=== PATIENT | male | born 1955 | race Caucasian/White ===

== ENCOUNTER 2019-09-07 11:19 | Emergency (ER) | payer OTHER ==
[2019-09-07 11:37] VITALS: BP 142/82; PULSE 79; TEMP 98.1; BMI 27.3
[2019-09-07] MEDS ORDERED: KETOROLAC TROMETHAMINE 60 MG/2 ML VIAL IM ONE (11:53)
[2019-09-07] MEDS ORDERED: KETOROLAC TROMETHAMINE 60 MG/2 ML VIAL ONE (11:55)
[2019-09-07 13:04] LABS: BASO % 0.6 % (0-2.0); EOS % 2.8 % (0-4.5); HEMATOCRIT 46.9 % (35.4-49); LYMPH % 20.5 % (8-40); MCH 31.6 pg (25.7-33.7); MCHC 34.1 g/dl (32.0-35.9); MEAN CELL VOLUME 92.6 fl (80-96); MEAN PLT VOLUME 8.4 fl (7.5-11.1); MONO % 11.3 % (3.8-10.2); NEUT % 64.8 % (42.8-82.8); PLATELET COUNT 275 K/MM3 (134-434); RBC 5.06 M/mm3 (4.00-5.60); RDW 12.5 % (11.9-15.9); WHITE BLOOD COUNT 7.5 K/mm3 (4.0-10.0)
[2019-09-07 13:12] LABS: INR 0.97 (0.83-1.09); PROTHROMBIN TIME (PATIENT) 11.4 SEC (9.7-13.0)
[2019-09-07 13:21] LABS: ALBUMIN 4.3 g/dl (3.4-5.0); BILIRUBIN,TOTAL 0.7 mg/dL (0.2-1); BLOOD UREA NITROGEN 18.6 mg/dL (7-18); CALCIUM 9.7 mg/dL (8.5-10.1); POTASSIUM 4.5 mmol/L (3.5-5.1); TOT PROT 7.6 g/dl (6.4-8.2)
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
== END 2019-09-07 14:42 | disposition home or self-care (01) ==
LOC: JERFT 11:19
PROC: 3E0233Z Introduction of Anti-inflammatory into Muscle, Percutaneous Approach (ICD-10-PCS; principal; 2019-09-07)
DX: S29.011A Strain of muscle and tendon of front wall of thorax, initial encounter (principal); V47.5XXA Car driver injured in collision with fixed or stationary object in traffic accident, initial encounter; Y92.488 Other paved roadways as the place of occurrence of the external cause; Y93.89 Activity, other specified; Y99.8 Other external cause status; I10 Essential (primary) hypertension; E78.00 Pure hypercholesterolemia, unspecified; E11.9 Type 2 diabetes mellitus without complications; Z85.46 Personal history of malignant neoplasm of prostate
CPT/HCPCS: 36415; 71046-TC-FY; 71101-TC-LT-FY; 71260-TC; 74177-TC; 80053; 85025; 85610; 96372; 99282-25; Q9967

== ENCOUNTER 2020-02-21 06:11 | Day surgery (SDC) | payer OTHER ==
[2020-02-20 14:03] VITALS: BMI 26.5
[2020-02-21 06:54] VITALS: BP 157/91; PULSE 67; TEMP 97.9
[2020-02-21 07:26] LABS: OPIATES, URI NEGATIVE ng/ml (CUTOFF=300); PHENCYCLIDINE,URINE NEGATIVE ng/ml (CUTOFF=25); URINE AMPHETAMINES NEGATIVE ng/ml (CUTOFF=500); URINE BARBITURATES NEGATIVE ng/ml (CUTOFF=200)
[2020-02-21] MEDS ORDERED: PROPOFOL 20 ML ONE (07:32)
[2020-02-21] MEDS ORDERED: MIDAZOLAM HCL 2 MG/2 ML SINGLE DOSE VIAL ONE (07:32)
[2020-02-21 07:37] LABS: METHADONE, UR NEGATIVE ng/ml (CUTOFF=300); URINE BENZODIAZEPINES NEGATIVE ng/ml (CUTOFF=200)
[2020-02-21 07:48] LABS: COCAINE, UR POSITIVE ng/ml (CUTOFF=300)
== END 2020-02-21 08:21 | disposition home or self-care (01) ==
LOC: JASU-SURG 06:11
PROVIDERS: ATTEND Urology
DX: Z53.8 Procedure and treatment not carried out for other reasons (principal)
CPT/HCPCS: 80307; 82962

== ENCOUNTER 2020-04-24 05:03 | Day surgery (SDC) | payer OTHER ==
[2020-04-23 10:10] VITALS: BMI 25.0
--- NOTE | 2020-04-24 11:24 | HP ---
History & Physical Update - History History: No Change - Physical Physical: No Change - Assessment Assessment: No Change - Plan Plan: No Change
--- NOTE | 2020-04-24 11:26 | OP ---
Operative Note - Note: Operative Date: 04/24/20 Pre-Operative Diagnosis: prostate cancer Operation: prostate cryoablation and cystoscopy Findings: prostate cancer Post-Operative Diagnosis: Same as Pre-op Surgeon: Braulio Bob Anesthesiologist/TELEVISION EQUIPMENT OPERATOR: Simba Pate Anesthesia: General Estimated Blood Loss (mls): 0 Drains & Tubes with Location: 18 fr connor Operative Report Dictated: Yes
[2020-04-24 11:58] LABS: EPI CELLS 4 /uL (0-25.1); HYALINE CASTS 2 /uL (0-3.1); URINE APPEARANCE CLEAR; URINE BACTERIA 9 /uL (0-1359); URINE BILIRUBIN NEGATIVE (NEGATIVE); URINE COLOR YELLOW; URINE GLUCOSE (UA) 2+ (NEGATIVE); URINE KETONE NEGATIVE (NEGATIVE); URINE LEUK ESTERASE NEGATIVE (NEGATIVE); URINE NITRITE NEGATIVE (NEGATIVE); URINE PROTEIN 1+ (NEGATIVE); URINE RBC 6 /uL (0-23.9); URINE UROBILINOGEN 0.2 mg/dL (0.2-1.0); URINE WBC 7 /uL (0-25.8)
[2020-04-24] MEDS ORDERED: LIDOCAINE HCL/PF 2% SDV 5ML VIAL ONE (15:05)
[2020-04-24] MEDS ORDERED: PROPOFOL 20 ML ONE ×2 (15:06)
[2020-04-24] MEDS ORDERED: ceFAZolin SODIUM 1 GM VIAL IVPB ONE (15:25)
[2020-04-24] MEDS ORDERED: KETOROLAC TROMETHAMINE 30 MG/1 ML VIAL ONE (16:00)
[2020-04-24] MEDS ORDERED: ceFAZolin SODIUM 1 GM VIAL ONE ×2 (16:01)
[2020-04-24] MEDS ORDERED: DEXAMETHASONE SOD PHOSPHATE 4 MG/1 ML VIAL ONE (16:01)
[2020-04-24] MEDS ORDERED: PROMETHAZINE HCL 25 MG/1 ML VIAL IVPUSH PRN (16:27)
[2020-04-24] MEDS ORDERED: ONDANSETRON 4 MG/2 ML VIAL IVPUSH PRN (16:27)
[2020-04-24] MEDS ORDERED: oxyCODONE HCL 5 MG TABLET PO PRN (16:27)
--- NOTE | 2020-04-24 17:18 | OP ---
DATE OF OPERATION: 04/24/2020 PREOPERATIVE DIAGNOSIS: Prostate cancer. POSTOPERATIVE DIAGNOSIS: Prostate cancer. PROCEDURE: Cystoscopy and prostate cryoablation. SURGEON: Braulio Hogue MD. AIRCRAFT MAINTENANCE ENGINEER: None. ANESTHESIA: General via laryngeal mask. ANESTHESIOLOGIST: Simba Pate MD. SPECIMENS: None. CULTURES: None. DRAINS: An 18-Salvadorean Medina catheter. ESTIMATED BLOOD LOSS: Negligible. COMPLICATIONS: None. DESCRIPTION OF PROCEDURE: Patient was brought in the operating room, placed on the operating room table in the supine position. After administration of general anesthesia via laryngeal mask, intravenous antibiotics were administered. Sequential compression devices were placed. The patient was placed in dorsal lithotomy position and the genitals, perineum, were shaved first, then prepped and draped in usual sterile manner. The 18 [place]orean Medina catheter was placed per urethra. 10 mL was placed in the balloon. The bladder was filled with 400 mL of sterile normal saline and clamped. The transrectal ultrasound probe was inserted into the rectum. Transrectal ultrasound of the prostate was done. Planning was devised for the prostate cryoblation. Once the plan was devised, 6 cryoblation probes were placed and 2 temperature sensors, one for the one for external sphincter were placed. The Medina catheter was removed. Cystoscopy was performed which demonstrated normal anterior urethra. Prostatic urethra showed no probes had penetrated the prostatic urethra. The bladder was entered, thoroughly inspected. There were no firm bodies, tumors, stones, inflammation. Both ureteral orifices were in their usual location with clear efflux bilaterally. The scope was retroflexed and no probes penetrated the bladder as well. Now the superstiff guidewire was inserted, the cystoscope was removed. The urethral warmer was inserted over the guidewire, and urethral warming was started. The position of the cryoablation probes were reconfirmed under ultrasound, and then the cryoablation was done with 2 free cycles. At the end of the 2nd cycle, the temperature sensors and the ablation probes were removed. The urethral warmer was left in place an additional 5 minutes. With manual pressure on the perineum, hemostasis was assured. A sterile compressive dressing was applied with bacitracin, 4x4, and Tegaderm. Tolerated procedure well. Transferred to recovery room in stable condition. Medina catheter of 18 Salv[place]orean was replaced, draining clear at the end of procedure. BRAULIO HOGUE M.D. [id number]
[2020-04-24 18:40] VITALS: BP 149/84; PULSE 67; TEMP 97.1
== END 2020-04-24 18:40 | disposition home or self-care (01) ==
LOC: JASU-SURG 05:03
PROVIDERS: ATTEND Urology
PROC: 0V503ZZ Destruction of Prostate, Percutaneous Approach (ICD-10-PCS; principal; 2020-04-24 13:30)
DX: C61 Malignant neoplasm of prostate (principal); I10 Essential (primary) hypertension; E11.9 Type 2 diabetes mellitus without complications
CPT/HCPCS: 55873; C2618; 81003; 82962; 94760

== ENCOUNTER 2021-05-19 09:03 | Emergency (ER) | payer OTHER ==
[2021-05-19 09:12] VITALS: BP 146/77; PULSE 74; TEMP 98; BMI 27.4
== END 2021-05-19 12:35 | disposition home or self-care (01) ==
LOC: JER 09:03
DX: S20.212A Contusion of left front wall of thorax, initial encounter (principal); W22.09XA Striking against other stationary object, initial encounter
CPT/HCPCS: 71046-TC-FY; 71111-TC-FY; 93005; 93010; 99285-25

== ENCOUNTER 2021-06-23 11:26 | Emergency (ER) | payer OTHER ==
[2021-06-23 12:03] VITALS: TEMP 99.3; BMI 26.9
[2021-06-23] MEDS ORDERED: ACETAMINOPHEN 1000 MG/100 ML VIAL IVPB ONE (12:46)
[2021-06-23] MEDS ORDERED: SODIUM CHLORIDE 0.9% 500 ML INFUS.BAG IV ONE ×2 (12:46→14:57)
[2021-06-23] MEDS ORDERED: KETOROLAC TROMETHAMINE 15 MG/ML VIAL IVPUSH ONE (13:11)
[2021-06-23] MEDS ORDERED: KETOROLAC TROMETHAMINE 15 MG/ML VIAL ONE (13:22)
[2021-06-23] MEDS ORDERED: ACETAMINOPHEN INJECTION 100 ML IVPB ONE (13:22)
[2021-06-23 13:58] LABS: BASO % 0.2 % (0-2.0); HEMATOCRIT 39.4 % (35.4-49); HEMOGLOBIN 14.1 GM/dL (11.7-16.9); LYMPH % 9.4 % (8-40); MCHC 35.8 g/dl (32.0-35.9); MEAN CELL VOLUME 89.4 fl (80-96); MONO % 12.8 % (3.8-10.2); NEUT % 77.6 % (42.8-82.8); PLATELET COUNT 241 10^3/uL (134-434); RBC 4.41 M/mm3 (4.00-5.60); RDW 12.5 % (11.9-15.9); WHITE BLOOD COUNT 9.3 K/mm3 (4.0-10.0)
[2021-06-23 14:14] LABS: INR 1.05 (0.83-1.09); PROTHROMBIN TIME (PATIENT) 11.8 SEC (9.7-13.0)
[2021-06-23 14:17] LABS: ACTIVATED PTT 26.4 SECONDS (25.2-36.5)
[2021-06-23 14:19] LABS: EPI CELLS 2 /uL (0-25.1); HYALINE CASTS 0 /uL (0-3.1); URINE APPEARANCE CLEAR; URINE BACTERIA 10 /uL (0-1359); URINE BILIRUBIN NEGATIVE (NEGATIVE); URINE COLOR YELLOW; URINE GLUCOSE (UA) 3+ (NEGATIVE); URINE KETONE NEGATIVE (NEGATIVE); URINE LEUK ESTERASE NEGATIVE (NEGATIVE); URINE NITRITE NEGATIVE (NEGATIVE); URINE PROTEIN 1+ (NEGATIVE); URINE RBC 11 /uL (0-23.9); URINE WBC 8 /uL (0-25.8)
[2021-06-23 14:21] LABS: CHLORIDE 95 mmol/L (98-107); SODIUM 130 mmol/L (136-145)
[2021-06-23 14:25] LABS: CALCIUM 9.4 mg/dL (8.5-10.1)
[2021-06-23 14:26] LABS: ALBUMIN 3.4 g/dl (3.4-5.0); ANION GAP 11 MMOL/L (8-16); CO2 24 mmol/L (21-32)
[2021-06-23 14:28] LABS: SGOT/AST 14 U/L (15-37); SGPT/ALT 30 U/L (13-61); URIC ACID 2.5 mg/dL (2.6-7.2)
[2021-06-23 14:29] LABS: CREATININE 1.1 mg/dL (0.55-1.3)
[2021-06-23 14:30] LABS: BILIRUBIN,TOTAL 0.9 mg/dL (0.2-1); TOT PROT 7.3 g/dl (6.4-8.2)
[2021-06-23 14:31] LABS: ALK PHOS 101 U/L (45-117)
[2021-06-23 14:35] LABS: GLUCOSE,RANDOM 471 mg/dL (74-106)
[2021-06-23] MEDS ORDERED: INSULIN (NOVOLOG) ASPART 100 UNITS/ML 10ML VIAL SQ ONE (14:59)
[2021-06-23 15:06] LABS: ERYTHROCYTE SEDIMENTATION RATE 83 mm/hr (0-20)
[2021-06-23 18:17] VITALS: BP 140/88; PULSE 74
== END 2021-06-23 17:00 | disposition home or self-care (01) ==
LOC: JER 11:26
PROC: 3E033NZ Introduction of Analgesics, Hypnotics, Sedatives into Peripheral Vein, Percutaneous Approach (ICD-10-PCS; principal; 2021-06-23)
PROC: 3E0333Z Introduction of Anti-inflammatory into Peripheral Vein, Percutaneous Approach (ICD-10-PCS; 2021-06-23)
DX: E11.65 Type 2 diabetes mellitus with hyperglycemia (principal); M08.40 Pauciarticular juvenile rheumatoid arthritis, unspecified site
CPT/HCPCS: 36415; 71046-TC-FY; 73110-TC-LT-FY; 73110-TC-RT-FY; 73130-TC-LT-FY; 73130-TC-RT-FY; 73562-TC-LT-FY; 80053; 81003; 82962; 84484; 84550; 85025; 85610; 85651; 85730; 86140; 86618; 87040; 87086; 87491; 87591; 87661; 93005; 93010; 96374; 96375; 99284-25; C9803; J0131; U0003; U0005

== ENCOUNTER 2021-06-26 14:02 | Emergency (ER) | payer OTHER ==
[2021-06-26 14:18] VITALS: BP 140/83; PULSE 106; TEMP 98.2; BMI 26.9
[2021-06-26] MEDS ORDERED: DEXAMETHASONE SOD PHOSPHATE 10 MG/1 ML VIAL IVPUSH ONE (14:48)
[2021-06-26] MEDS ORDERED: KETOROLAC TROMETHAMINE 30 MG/1 ML VIAL IVPUSH ONE (14:48)
[2021-06-26] MEDS ORDERED: morphine CARPU-JECT 2 MG/1 ML DISP.SYRIN IVPUSH ONE (14:48)
[2021-06-26] MEDS ORDERED: LORazepam 2 MG/ML SDV VIAL ONE (14:59)
[2021-06-26] MEDS ORDERED: morphine SULFATE 4 MG/ML VIAL ONE (15:13)
[2021-06-26] MEDS ORDERED: KETOROLAC TROMETHAMINE 30 MG/1 ML VIAL ONE (15:14)
[2021-06-26] MEDS ORDERED: DEXAMETHASONE SOD PHOSPHATE 10 MG/1 ML VIAL ONE (15:14)
[2021-06-26 17:02] LABS: BASO % 0.1 % (0-2.0); EOS % 0.2 % (0-4.5); HEMATOCRIT 37.3 % (35.4-49); HEMOGLOBIN 12.9 GM/dL (11.7-16.9); LYMPH % 8.6 % (8-40); MCH 31.2 pg (25.7-33.7); MCHC 34.7 g/dl (32.0-35.9); MEAN CELL VOLUME 89.9 fl (80-96); MONO % 11.8 % (3.8-10.2); NEUT % 79.3 % (42.8-82.8); PLATELET COUNT 336 10^3/uL (134-434); RBC 4.15 M/mm3 (4.00-5.60); RDW 12.5 % (11.9-15.9); WHITE BLOOD COUNT 10.6 K/mm3 (4.0-10.0)
[2021-06-26 17:29] LABS: CALCIUM 9.2 mg/dL (8.5-10.1)
[2021-06-26 17:30] LABS: ALBUMIN 2.8 g/dl (3.4-5.0); BLOOD UREA NITROGEN 21.5 mg/dL (7-18)
[2021-06-26 17:31] LABS: URIC ACID 3.1 mg/dL (2.6-7.2)
[2021-06-26 17:33] LABS: CREATININE 1.2 mg/dL (0.55-1.3)
[2021-06-26 17:34] LABS: BILIRUBIN,TOTAL 0.6 mg/dL (0.2-1); TOT PROT 6.8 g/dl (6.4-8.2)
[2021-06-26 17:41] LABS: ERYTHROCYTE SEDIMENTATION RATE 88 mm/hr (0-20)
[2021-06-26] MEDS ORDERED: SODIUM CHLORIDE 0.9% 500 ML INFUS.BAG IV ONE (17:47)
[2021-06-26] MEDS ORDERED: INSULIN REGULAR HUMAN 100 UNITS/ML *VIAL SQ ONE (17:48)
[2021-06-26 18:12] LABS: BF WBC & OTHER NUCLEATED CELLS 1055 /mm3; BODY FLUID MACROPHAGES 12 %; BODY FLUID MESOTHELIAL 1 %; BODY FLUID MONOCYTE 17 %
== END 2021-06-26 20:00 | disposition home or self-care (01) ==
LOC: JER 14:02
PROC: 3E033GC Introduction of Other Therapeutic Substance into Peripheral Vein, Percutaneous Approach (ICD-10-PCS; principal; 2021-06-26)
PROC: 3E023GC Introduction of Other Therapeutic Substance into Muscle, Percutaneous Approach (ICD-10-PCS; principal; 2021-06-26)
DX: M06.4 Inflammatory polyarthropathy (principal)
CPT/HCPCS: 36415; 80053; 82962; 84550; 85025; 85651; 86140; 87070; 87075; 87205; 89060; 99284-25; J1100

== ENCOUNTER 2022-07-08 06:06 | Day surgery (SDC) | payer OTHER ==
[2022-07-04 14:36] VITALS: BMI 27.9
[2022-07-08] MEDS ORDERED: PROPOFOL 20 ML ONE (07:18)
[2022-07-08] MEDS ORDERED: METOPROLOL TARTRATE 5 MG/5 ML VIAL ONE (07:18)
[2022-07-08] MEDS ORDERED: MIDAZOLAM HCL 2 MG/2 ML SINGLE DOSE VIAL ONE (07:19)
[2022-07-08] MEDS ORDERED: BUPIVACAINE HCL/PF 0.25% (2.5MG/ML) 10 ML VIAL ONE (07:21)
[2022-07-08] MEDS ORDERED: DEXAMETHASONE SOD PHOSPHATE 4 MG/1 ML VIAL ONE (07:52)
[2022-07-08] MEDS ORDERED: ONDANSETRON 4 MG/2 ML VIAL ONE ×2 (07:52→10:17)
[2022-07-08] MEDS ORDERED: ceFAZolin SODIUM 1 GM VIAL ONE (07:52)
[2022-07-08] MEDS ORDERED: KETOROLAC TROMETHAMINE 30 MG/1 ML VIAL ONE (08:40)
[2022-07-08] MEDS ORDERED: oxyCODONE HCL 5 MG TABLET PO PRN (09:34)
[2022-07-08] MEDS ORDERED: ONDANSETRON 4 MG/2 ML VIAL IVPUSH PRN (09:34)
[2022-07-08] MEDS ORDERED: FENTANYL CITRATE/PF 50 MCG/ML VIAL ONE ×3 (09:35→10:02)
[2022-07-08] MEDS ORDERED: LACTATED RINGERS SOLUTION 1,000 ML IV SCH (09:45)
[2022-07-08 09:55] VITALS: RESP 16
[2022-07-08 10:43] VITALS: PULSE 77; TEMP 97.8
[2022-07-08] MEDS ORDERED: oxyCODONE HCL 5 MG TABLET ONE (10:44)
[2022-07-08] MEDS ORDERED: oxyCODONE HCL 5 MG TABLET PO ONE (10:45)
[2022-07-08 11:29] VITALS: BP 144/77
[2022-07-08 14:15] LABS: BF WBC & OTHER NUCLEATED CELLS 5 /mm3
== END 2022-07-08 11:25 | disposition home or self-care (01) ==
LOC: FASU 06:06
PROVIDERS: ATTEND Orthopaedic Surgery Sports Medicine
PROC: 0SBC4ZZ Excision of Right Knee Joint, Percutaneous Endoscopic Approach (ICD-10-PCS; 2022-07-08)
PROC: 0SBC4ZZ Excision of Right Knee Joint, Percutaneous Endoscopic Approach (ICD-10-PCS; principal; 2022-07-08 08:10)
DX: S83.241A Other tear of medial meniscus, current injury, right knee, initial encounter (principal); S83.281A Other tear of lateral meniscus, current injury, right knee, initial encounter; M65.9 Synovitis and tenosynovitis, unspecified; M94.261 Chondromalacia, right knee; X58.XXXA Exposure to other specified factors, initial encounter; Y93.9 Activity, unspecified; Y92.9 Unspecified place or not applicable
CPT/HCPCS: 82962; 87070; 87075; 87205; 88305-TC; 89060; 94760